=== PATIENT | female | born 1995 | race African-American/Black ===

== ENCOUNTER 2017-05-28 11:36 | Emergency (ER) | payer MEDICAID ==
[~2017-05-28] VITALS: Ht 157.5 cm; Wt 59.0 kg
[2017-05-28] MEDS ORDERED: ACETAMINOPHEN 325MG TABLET PO STA (15:10)
[2017-05-28 16:14] VITALS: BP 118/70
[2017-05-28 16:41] LABS: CLARITY URINE CLEAR (CLEAR); COLOR URINE YELLOW (YELLOW); GLUCOSE URINE NEGATIVE (NEGATIVE); KETONES URINE NEGATIVE (NEGATIVE); LEUKOCYTE ESTERASE URINE NEGATIVE (NEGATIVE); NITRITE URINE NEGATIVE (NEGATIVE); OCCULT BLOOD URINE NEGATIVE (NEGATIVE); PROTEIN URINE NEGATIVE (NEGATIVE); SPECIFIC GRAVITY URINE 1.016 (1.005-1.030); UROBILINOGEN URINE 0.2 E.U./dL (0.2-1.0)
== END 2017-05-28 16:13 | disposition home or self-care (01) ==
LOC: ER 12:25
DX: R10.9 Unspecified abdominal pain (principal); R10.2 Pelvic and perineal pain; F17.200 Nicotine dependence, unspecified, uncomplicated
CPT/HCPCS: 81003; 81025; 99283